=== PATIENT | male | born 1980 | race Caucasian/White ===

== ENCOUNTER 2017-05-14 12:21 | Emergency (ER) | payer OTHER ==
--- NOTE | 2017-05-14 16:15 | UC ---
Back Pain HPI <Pamela Hinojosa - Last Filed: 05/14/17 17:08> - HPI Summary HPI Summary: twisted and threw back out the end of April is having worsening back pain - History of Current Complaint Hx Obtained From: Patient Onset/Duration: Sudden Onset, Lasting Weeks, Still Present Timing: Constant Severity Initially: Moderate Severity Currently: Moderate Pain Intensity: 7 Pain Scale Used: 0-10 Numeric Back Pain: Is Diffuse - both sides of lower back Character: Throbbing, Spasmodic, Stiffness Aggravating Factor(s): Movement Alleviating Factor(s): Rest, Position Associated Signs And Symptoms: Positive: Tingling <Kajal Chacko - Last Filed: 05/22/17 13:05> - History of Current Complaint Chief Complaint: UCBackPain Stated Complaint: BACK PAIN Time Seen by Provider: 05/14/17 16:05 - Allergies/Home Medications Allergies/Adverse Reactions: Allergies Allergy/AdvReac Type Severity Reaction Status Date / Time No Known Allergies Allergy Verified 05/14/17 15:13 Home Medications: Home Medications Ibuprofen TAB* [Motrin TAB* 600 MG] 600 mg PO DAILY 05/14/17 [History Confirmed 05/14/17] PMH/Surg Hx/FS Hx/Imm Hx Previously Healthy: Yes - Surgical History Surgical History: Yes Surgery Procedure, Year, and Place: left knee ACL - Family History Known Family History: Positive: Cardiac Disease - Social History Occupation: Employed Full-time Lives: With Family Alcohol Use: Rare Substance Use Type: None Substance Use Comment - Amount & Last Used: week ends Smoking Status (MU): Heavy Every Day Tobacco Smoker Type: Cigarettes Amount Used/How Often: 1/2ppd Have You Smoked in the Last Year: Yes Cessation Counseling: Patient Advised to Stop - Immunization History Most Recent Tetanus Shot: UTD <Kajal Chacko - Last Filed: 05/22/17 13:05> Review of Systems Constitutional: Negative Skin: Negative Eyes: Negative ENT: Negative Respiratory: Negative Cardiovascular: Negative Gastrointestinal: Negative Genitourinary: Negative Motor: Negative Neurovascular: Negative Musculoskeletal: Myalgia - soft tissue of lower back no spine pain Neurological: Negative Psychological: Negative Is Patient Immunocompromised?: No All Other Systems Reviewed And Are Negative: Yes <Kajal Chacko - Last Filed: 05/22/17 13:05> Physical Exam Vital Signs: Initial Vital Signs Temp 100.6 F 05/14/17 15:02 Pulse 95 05/14/17 15:02 Resp 20 05/14/17 15:02 BP 145/92 05/14/17 15:02 Pulse Ox 100 05/14/17 15:02 <Pamela Hinojosa - Last Filed: 05/14/17 17:08> Triage Information Reviewed: Yes Appearance: Well-Appearing, Well-Nourished, Pain Distress - mild Vital Signs: Initial Vital Signs Temp 100.6 F 05/14/17 15:02 Pulse 95 05/14/17 15:02 Resp 20 05/14/17 15:02 BP 145/92 05/14/17 15:02 Pulse Ox 100 05/14/17 15:02 Vital Signs Reviewed: Yes Eye Exam: Normal Eyes: Positive: Conjunctiva Clear ENT Exam: Normal ENT: Positive: Normal ENT inspection, Hearing grossly normal, Pharynx normal. Negative: Nasal congestion, Nasal drainage, Trismus, Muffled voice, Hoarse voice , Dental tenderness Dental Exam: Normal Neck exam: Normal Neck: Positive: Supple, Nontender Respiratory Exam: Normal Respiratory: Positive: Chest non-tender, Lungs clear, Normal breath sounds, No respiratory distress, No accessory muscle use Cardiovascular Exam: Normal Cardiovascular: Positive: RRR, No Murmur, Pulses Normal, Brisk Capillary Refill Musculoskeletal Exam: Normal Musculoskeletal: Positive: Strength Intact, ROM Intact, No Edema Neurological Exam: Normal Neurological: Positive: Alert, Muscle Tone Normal Psychological Exam: Normal Skin Exam: Normal <Kajal Chacko - Last Filed: 05/22/17 13:05> Diagnostics - Radiology No standard instances Xray Interpretation: Positive (See Comments) - mild degenerative changes Radiology Interpretation Completed By: Radiologist <Kajal Chacko - Last Filed: 05/22/17 13:05> Back Pain Course/Dx - Course Course Of Treatment: flexeril ibuprofen , follow with pcp exercise suggestions - Differential Dx/Diagnosis Provider Diagnoses: elevated blood pressure without diagnosis of hypertension, nicotine depedenant, muscle spasm lumbar back <Kajal Chacko - Last Filed: 05/22/17 13:05> Discharge <Pamela Hinojosa - Last Filed: 05/14/17 17:08> <Kajal Chacko - Last Filed: 05/22/17 13:05> - Discharge Plan Condition: Stable Disposition: HOME Prescriptions: Cyclobenzaprine TAB* [Flexeril 10 MG TAB*] 10 mg PO TID PRN #15 tab PRN Reason: muscle spasm Patient Education Materials: Low Back Strain (ED), Core Strengthening Exercises (GEN), Lower Back Exercises (ED) Forms: *Work Release Referrals: [facility] [place] [facility] REFERRAL [Outside] - 3 Days
--- NOTE | 2017-05-14 16:45 | RAD ---
HISTORY: Back pain COMPARISONS: None VIEWS: 5 , Frontal, lateral, coned-down lateral sacral, and bilateral oblique views of the lumbar spine. FINDINGS: ALIGNMENT: The alignment is normal. VERTEBRAL BODIES: The vertebral body heights are normal. The interpedicular distances are normal. JOINTS: The facet joints are normal. INTERVERTEBRAL DISCS: There is mild loss of intervertebral disc height at L5-S1. SOFT TISSUE: Unremarkable. OTHER: The pelvis is unremarkable. The lung bases are clear. IMPRESSION: MILD DEGENERATIVE DISC DISEASE
[2017-05-14 17:08] VITALS: BP 152/97
== END 2017-05-14 17:48 | disposition home or self-care (01) ==
LOC: UCEAST 12:21
DX: M62.830 Muscle spasm of back (principal); M54.5 Low back pain; M51.37 Other intervertebral disc degeneration, lumbosacral region; R03.0 Elevated blood-pressure reading, without diagnosis of hypertension; F17.210 Nicotine dependence, cigarettes, uncomplicated
CPT/HCPCS: 72110; 99212; G0463